=== PATIENT | male | born 1960 | race Caucasian/White ===

== ENCOUNTER 2023-06-04 11:57 | Emergency (ER) | payer MEDICARE ==
[2023-06-04] MEDS ORDERED: Sodium Chloride 0.9% 10 ML Syringe FLUSH PRN (12:25)
[2023-06-04 12:49] LABS: BASOPHILS ABSOLUTE AUTO 0.05 K/uL (0.00-0.10); BASOPHILS PERCENT AUTO 0.7 % (0.1-1.3); EOSINOPHILS PERCENT AUTO 2.8 % (0.0-5.4); HEMATOCRIT 21.3 % (38.4-49.7); IMMATURE GRAN PERCENT AUTO 0.3 % (0.0-0.7); LYMPHOCYTES ABSOLUTE AUTO 0.94 K/uL (0.8-3.3); LYMPHOCYTES PERCENT AUTO 13.1 % (11.4-47.7); MEAN CORPUSCULAR HEMOGLOBIN 31.9 pg (31.6-35.5); MEAN CORPUSCULAR HGB CONC 32.4 g/dL (31.6-35.5); MEAN CORPUSCULAR VOLUME 98.6 fL (81.4-99.0); MONOCYTES PERCENT AUTO 11.1 % (3.3-12.6); NEUTROPHILS ABSOLUTE AUTO 5.18 K/uL (1.0-7.6); PLATELET COUNT,PLT 234 K/uL (130-375); RED BLOOD CELL COUNT 2.16 M/uL (4.14-5.76); WHITE BLOOD CELL COUNT,WBC 7.2 K/uL (3.2-11.0)
[2023-06-04 12:51] LABS: HEMOGLOBIN 6.9 g/dL (12.9-16.9); IMMATURE GRAN ABSOLUTE AUTO 0.02 K/uL (0.00-0.23)
[2023-06-04 13:09] LABS: INR 1.1; PROTHROMBIN TIME 11.1 sec (9.2-10.6); PTT,PARTIAL THROMBOPLSTIN TIME 26.6 sec (21.8-27.3)
[2023-06-04 17:15] LABS: HEMATOCRIT 24.6 % (38.4-49.7)
== END 2023-06-04 17:50 | disposition home or self-care (01) ==
LOC: JP.ED 11:57
DX: I12.0 Hypertensive chronic kidney disease with stage 5 chronic kidney disease or end stage renal disease (principal); N18.6 End stage renal disease; D63.1 Anemia in chronic kidney disease; N17.9 Acute kidney failure, unspecified; F17.210 Nicotine dependence, cigarettes, uncomplicated; Z79.899 Other long term (current) drug therapy; Z99.2 Dependence on renal dialysis; Z86.19 Personal history of other infectious and parasitic diseases
CPT/HCPCS: 36415; 36430; 85014; 85018; 85025; 85610; 85730; 86850; 86900; 86901; 86920; 86922; 99284; P9016

== ENCOUNTER 2024-06-30 10:36 | Emergency (ER) | payer MEDICARE ==
[2024-06-30 11:02] LABS: BASE EXCESS ARTERIAL -3.1 mm/L; BICARBONATE,ARTERIAL 20.5 mmol/L (22.0-26.0); CARBOXYHEMOGLOBIN 4.1 % (0.0-1.6); METHEMOGLOBIN 0.9 %; OXYHEMOGLOBIN 84.6 %; PCO2 ARTERIAL 33.9 mmHg (35.0-42.0); PO2 ARTERIAL 60.8 mmHg (75.0-100.0); TOTAL HEMOGLOBIN 11.3 g/dL (13.5-18.0)
[2024-06-30 11:04] LABS: BASOPHILS ABSOLUTE AUTO 0.04 K/uL (0.00-0.10); BASOPHILS PERCENT AUTO 0.3 % (0.1-1.3); EOSINOPHILS PERCENT AUTO 0.1 % (0.0-5.4); HEMATOCRIT 32.8 % (38.4-49.7); IMMATURE GRAN ABSOLUTE AUTO 0.05 K/uL (0.00-0.23); IMMATURE GRAN PERCENT AUTO 0.4 % (0.0-0.7); LYMPHOCYTES ABSOLUTE AUTO 0.53 K/uL (0.8-3.3); LYMPHOCYTES PERCENT AUTO 3.8 % (11.4-47.7); MEAN CORPUSCULAR HEMOGLOBIN 33.1 pg (31.6-35.5); MEAN CORPUSCULAR HGB CONC 33.5 g/dL (31.6-35.5); MEAN CORPUSCULAR VOLUME 98.8 fL (81.4-99.0); MONOCYTES ABSOLUTE AUTO 0.55 K/uL (0.20-0.90); MONOCYTES PERCENT AUTO 3.9 % (3.3-12.6); NEUTROPHILS PERCENT AUTO 91.5 % (40.0-78.1); PLATELET COUNT,PLT 302 K/uL (130-375); RED BLOOD CELL COUNT 3.32 M/uL (4.14-5.76)
[2024-06-30 11:05] LABS: EOSINOPHILS ABSOLUTE AUTO 0.02 K/uL (0.00-0.40)
[2024-06-30] MEDS: Albuterol/Ipratropium 3.0-0.5 MG/3 ML Neb Soln NEB ONE (11:11)
[2024-06-30] MEDS: Morphine 4 MG/ML Syringe IVPUSH PRN (11:11)
[2024-06-30 11:30] LABS: A/G RATIO 0.8 (1.2-2.2); ALANINE AMINOTRANSFERASE,ALT 15 U/L (12-78); ALKALINE PHOSPHATASE 81 U/L (46-116); ASPARTATE AMNIOTRANSFERASE,AST 14 U/L (15-37); BILIRUBIN TOTAL 0.5 mg/dL (0.2-1.0); CALCIUM 9.9 mg/dL (8.5-10.1); CARBON DIOXIDE,CO2 22 mmol/L (21-32); CHLORIDE,CL 99 mmol/L (100-108); EST CRCL DRUG DOSING (CG) 10.07 mL/min; ESTIMATED GFR 9 mL/min (>60); GLUCOSE RANDOM 174 mg/dL (74-106); PROTEIN TOTAL,TP 6.6 g/dL (6.4-8.2); SODIUM,NA 137 mmol/L (140-148)
[2024-06-30 11:32] LABS: BLOOD UREA NITROGEN,BUN 91 mg/dL (7-18); CREATININE 6.5 mg/dL (0.8-1.3); TROPONIN I HIGH SENSITIVITY 316.5 pg/mL (<=60.3)
[2024-06-30 11:53] LABS: LACTIC ACID 2.2 mmol/L (0.4-2.0)
[2024-06-30] MEDS ORDERED: cefTRIAXone 2 GM in Sodium Chloride 0.9% 50 ML IV SCH (12:00)
[2024-06-30] MEDS: Lactated Ringers 1,000 ML IV SCH (12:15)
[2024-06-30] MEDS: cefTRIAXone 2 GM in Sodium Chloride 0.9% 50 ML IV SCH (12:19)
[2024-06-30] MEDS: cefTRIAXone 1 GM Vial ONE (12:46)
== END 2024-06-30 14:54 ==
LOC: JP.ED 10:36
DX: J18.9 Pneumonia, unspecified organism (principal); I12.0 Hypertensive chronic kidney disease with stage 5 chronic kidney disease or end stage renal disease; N18.6 End stage renal disease; Z99.2 Dependence on renal dialysis; Z79.01 Long term (current) use of anticoagulants; Z79.82 Long term (current) use of aspirin; Z79.899 Other long term (current) drug therapy
CPT/HCPCS: 36415; 36600; 71046; 71046-26; 80053; 82803; 83605; 83880; 84484; 85025; 86140; 87040; 87428-QW; 94640; 96361; 96365; 96375; 96376; 99284; 99285-25; A9270-GY; J0696; J2270; J7120